=== PATIENT | female | born 2005 | race Two or more races ===

== ENCOUNTER 2023-08-23 22:36 | Emergency (ER) | payer MEDICAID ==
[~2023-08-23] VITALS: Ht 167.6 cm; Wt 58.0 kg
[2023-08-23 22:37] VITALS: TEMP 98.2
[2023-08-23 23:31] VITALS: BP 110/75; PULSE 101; RESP 17
== END 2023-08-24 00:34 | disposition short-term general hospital (02) ==
LOC: EMS 22:40
DX: O75.9 Complication of labor and delivery, unspecified (principal); Z3A.36 36 weeks gestation of pregnancy
CPT/HCPCS: 99291; Z7502